=== PATIENT | male | born 1935 | race Caucasian/White ===

== ENCOUNTER 2023-06-13 09:59 | Inpatient (IN) | payer MEDICARE, OTHER ==
[2023-06-13] MEDS ORDERED: Lactated Ringers 1,000 ML IV ONE (11:14)
[2023-06-13] MEDS ORDERED: Sodium Chloride 0.9% 10 ML Syringe FLUSH PRN (11:14)
[2023-06-13 11:45] LABS: HEMATOCRIT 19.6 % (42.0-52.0); IMMATURE GRAN ABSOLUTE AUTO 0.03 K/mm3 (0.00-0.05); IMMATURE GRAN PERCENT AUTO 3.5 % (0.0-0.4); LYMPHOCYTES ABSOLUTE AUTO 0.6 K/mm3 (1.0-4.8); LYMPHOCYTES PERCENT AUTO 67.1 % (24.0-44.0); MEAN CORPUSCULAR HEMOGLOBIN 43.3 pg (28.0-32.0); MEAN CORPUSCULAR HGB CONC 33.2 g/dl (32.0-36.0); MEAN CORPUSCULAR VOLUME 130.7 fl (83.0-99.0); MEAN PLATELET VOLUME 13.4 fl (9.4-12.4); MONOCYTES PERCENT AUTO 4.7 % (0.0-8.0); NEUTROPHILS ABSOLUTE AUTO 0.2 K/mm3 (1.8-7.7); NEUTROPHILS PERCENT AUTO 24.7 % (41.0-71.0); PLATELET COUNT,PLT 30 K/mm3 (150-400)
[2023-06-13 11:59] LABS: A/G RATIO 0.5 (1-2); ALBUMIN 2.5 g/dl (3.4-5.0); ALKALINE PHOSPHATASE 128 U/L (46-116); ANION GAP 25.5 (5-15); BILIRUBIN TOTAL 0.9 mg/dL (0.2-1.0); BUN/CREATININE RATIO 22.4 (14-18); CALCIUM 8.9 mg/dL (8.5-10.1); CHLORIDE,CL 102 mEq/L (98-107); ESTIMATED GFR 15 mL/min (>60); GLUCOSE RANDOM 143 mg/dL (70-99); LIPASE 46 U/L (16-77); PROTEIN TOTAL,TP 7.2 g/dl (6.4-8.2); SODIUM,NA 136 mEq/L (136-145)
[2023-06-13 12:00] LABS: ALANINE AMINOTRANSFERASE,ALT 1454 U/L (16-63); ASPARTATE AMNIOTRANSFERASE,AST 1272 U/L (15-37); BLOOD UREA NITROGEN,BUN 85 mg/dL (7-18); CARBON DIOXIDE,CO2 14 mEq/L (21-32); CREATININE 3.8 mg/dL (0.7-1.3); POTASSIUM,K 5.5 mEq/L (3.5-5.1)
[2023-06-13 12:06] LABS: HEMOGLOBIN 6.5 gm/dl (14.0-18.0); WHITE BLOOD CELL COUNT,WBC 0.85 K/mm3 (3.9-11.3)
[2023-06-13] MEDS ORDERED: Sodium Chloride 0.9% 1,000 ML IV SCH (12:15)
[2023-06-13 13:26] LABS: SLIDE REVIEW ABNORMAL SMEAR
[2023-06-13] MEDS ORDERED: Naloxone 0.4 MG/ML SDV IVPUSH PRN (13:47)
[2023-06-13] MEDS ORDERED: Morphine 2 MG/ML SYRINGE IVPUSH ONE (13:47)
[2023-06-13] MEDS ORDERED: Ondansetron 4 MG/2 ML SDV IV PRN (14:30)
[2023-06-13] MEDS ORDERED: Morphine 2 MG/ML SYRINGE IVPUSH PRN (14:30)
[2023-06-13] MEDS ORDERED: Acetaminophen 325 MG Tab PO PRN (14:30)
[2023-06-13] MEDS ORDERED: Scopolamine 1.5 MG Transdermal Patch TRDERM PRN (14:34)
[2023-06-13] MEDS ORDERED: LORazepam 2 MG/ML SDV IVPUSH PRN (14:36)
== END 2023-06-13 18:25 | disposition expired | DRG 951 ==
LOC: JD.ED 09:59 → JD.MS 14:33
PROVIDERS: ADMIT Internal Medicine; ATTEND Internal Medicine
DX: Z51.5 Encounter for palliative care (principal); E86.0 Dehydration; N17.9 Acute kidney failure, unspecified; N18.4 Chronic kidney disease, stage 4 (severe); Z68.1 Body mass index [BMI] 19.9 or less, adult; M10.9 Gout, unspecified; Z99.3 Dependence on wheelchair; E87.29 Other acidosis; D61.818 Other pancytopenia; Z66 Do not resuscitate; D64.9 Anemia, unspecified; K59.09 Other constipation; I46.9 Cardiac arrest, cause unspecified; M19.90 Unspecified osteoarthritis, unspecified site; F41.9 Anxiety disorder, unspecified; R74.01 Elevation of levels of liver transaminase levels; R62.7 Adult failure to thrive; R26.2 Difficulty in walking, not elsewhere classified; E87.5 Hyperkalemia; G62.9 Polyneuropathy, unspecified; F03.B0 Unspecified dementia, moderate, without behavioral disturbance, psychotic disturbance, mood disturbance, and anxiety; Z87.39 Personal history of other diseases of the musculoskeletal system and connective tissue; Z79.52 Long term (current) use of systemic steroids; Z79.899 Other long term (current) drug therapy; Z98.890 Other specified postprocedural states; Z87.19 Personal history of other diseases of the digestive system; Z83.2 Family history of diseases of the blood and blood-forming organs and certain disorders involving the immune mechanism
CPT/HCPCS: 36415; 80053; 83690; 85025; 86140; 86850; 86900; 86901; 86922; J2270; J3490; J7030; J7120